=== PATIENT | female | born 1990 | race Caucasian/White ===

== ENCOUNTER 2022-02-16 10:36 | Observation (INO) ==
[2022-02-16] MEDS ORDERED: Naloxone 0.4 MG/ML INJ IVP PRN (12:47)
[2022-02-16] MEDS ORDERED: Acetaminophen 325 MG TABLET PO PRN (12:56)
[2022-02-16] MEDS ORDERED: Ondansetron 4 MG/2 ML VIAL IVP PRN ×2 (12:56→17:11)
[2022-02-16] MEDS ORDERED: *HR* OxyCODONE Immed Rel 5 MG TABLET PO PRN (12:56)
[2022-02-16] MEDS ORDERED: *HR* HYDROcodone/Acet 5/325 mg TABLET PO PRN (12:56)
[2022-02-16] MEDS ORDERED: *HR* HYDROmorphone 2 MG/ML SYRINGE IVP PRN (13:16)
[2022-02-16] MEDS: Ringers Solution, Lactated 1,000 ML IVC SCH ×2 (13:39→22:39)
[2022-02-16] MEDS ORDERED: *HR* FentaNYL (PF) 100 MCG/2 ML VIAL ONE (16:51)
[2022-02-16] MEDS ORDERED: *HR* Midazolam HCl 2 MG/2 ML VIAL ONE (16:52)
[2022-02-16] MEDS ORDERED: *HR* Propofol 200 MG/20 ML VIAL IVP ONE (16:52)
[2022-02-16] MEDS ORDERED: *HR* Succinylcholine 200 MG/10 ML VIAL IVP ONE (17:03)
[2022-02-16] MEDS ORDERED: Ondansetron 4 MG/2 ML VIAL ONE (17:03)
[2022-02-16] MEDS ORDERED: Lidocaine HCL 4 ML Topical Solution (Laryng-O-Jet Kit Sterile Pak) TP ONE (17:03)
[2022-02-16] MEDS ORDERED: *HR* FentaNYL (PF) 100 MCG/2 ML VIAL IVP PRN ×2 (17:11→17:36)
[2022-02-16] MEDS ORDERED: Prochlorperazine 10 MG/2 ML VIAL IVP ONE (23:01)
[2022-02-17 03:22] LABS: Basophils % 0.2 %; Hematocrit 32.8 % (35.3-44.9); Hemoglobin 10.4 g/dL (11.5-15.4); Immature Granulocytes % 0.4 % (0-4); Lymphocytes # 0.8 K/mcL (0.6-4.6); Mean Corpuscular HGB Conc 31.7 g/dL (31.6-35.5); Mean Corpuscular Hemoglobin 24.3 pg (28.0-33.3); Mean Corpuscular Volume 76.6 fL (83.0-100.0); Mean Platelet Volume 11.7 fL (9.4-12.4); Monocytes # 0.2 K/mcL (0.0-1.3); Monocytes % 1.8 %; Neutrophils # 8.2 K/mcL (1.6-8.9); Platelet Count 207 K/mcL (140-400); Red Blood Count 4.28 M/mcL (3.82-4.97); Red Cell Distribution Width 15.9 % (11.5-14.5); Segmented Neutrophils % 88.6 %; White Blood Count 9.2 K/mcL (4.3-11.1)
[2022-02-17 03:45] LABS: BUN/Creatinine Ratio 16 (6-26); Blood Urea Nitrogen 10 mg/dL (6-20); Calcium 8.7 mg/dL (8.6-10.3); Carbon Dioxide 24 mEq/L (23-29); Chloride 107 mEq/L (98-107); Chol/HDL Ratio 3.6 (0-4.9); Cholesterol 91 mg/dL (< 200); Glucose 94 mg/dL (70-105); HDL Cholesterol 25 mg/dL (40-59); LDL Cholesterol,Calculated 59 mg/dL (< 100); Magnesium 1.5 mg/dL (1.6-2.6); Osmolality,Calculated 287 (280-300); Potassium 4.3 mEq/L (3.5-5.1); Sodium 139 mEq/L (136-145); Triglycerides 33 mg/dL (< 150)
[2022-02-17] MEDS: Nicotine 14 MG PATCH.TD24 TD SCH (08:07)
[2022-02-17] MEDS: *HR* Enoxaparin 40 MG/0.4 ML SYRINGE SQ SCH (08:07)
[2022-02-17 10:58] LABS: Alanine Aminotransferase 68 Units/L (7-52); Albumin 3.5 g/dL (3.5-5.7); Albumin/Globulin Ratio 1.4 (1.1-2.2); Alkaline Phosphatase 117 Units/L (34-104); Aspartate Amino Transferase 60 Units/L (13-39); Bilirubin,Direct 0.8 mg/dL (0.0-0.2); Bilirubin,Indirect 0.8 mg/dL (0.0-1.0); Bilirubin,Total 1.6 mg/dL (0.3-1.0); Globulin 2.5 g/dL (2.4-3.5)
[2022-02-17 12:21] LABS: Lipase 756 Units/L (11-82)
[2022-02-17] MEDS: 0.9 % Sodium Chloride 1,000 ML IVC SCH (12:23)
[2022-02-17] MEDS ORDERED: Lidocaine -MPF 2% 5 ML VIAL ONE (14:19)
[2022-02-17] MEDS ORDERED: Ondansetron 4 MG/2 ML VIAL ONE (14:19)
[2022-02-17] MEDS ORDERED: Lidocaine HCL 4 ML Topical Solution (Laryng-O-Jet Kit Sterile Pak) TP ONE (14:19)
[2022-02-17] MEDS ORDERED: *HR* Rocuronium Bromide 50 MG/5 ML VIAL ONE (14:19)
[2022-02-17] MEDS ORDERED: *HR* Propofol 200 MG/20 ML VIAL IVP ONE (14:19)
[2022-02-17] MEDS ORDERED: *HR* FentaNYL (PF) 100 MCG/2 ML VIAL ONE ×2 (14:19→15:09)
[2022-02-17] MEDS ORDERED: cefOXitin 2,000 MG in 0.9 % Sodium Chloride 20 ML IVP ONE (14:38)
[2022-02-17] MEDS ORDERED: CefOXitin 2,000 MG VIAL ONE (14:41)
[2022-02-17] MEDS ORDERED: Ringers Solution, Lactated 1,000 ML IVC SCH (14:45)
[2022-02-17] MEDS ORDERED: Sugammadex Sodium 200 MG/2 ML VIAL IV ONE (15:14)
[2022-02-17] MEDS ORDERED: *HR* HYDROmorphone PF 0.5 MG/0.5 ML SYRINGE IVP PRN (15:39)
[2022-02-17] MEDS ORDERED: Ondansetron 4 MG/2 ML VIAL IVP PRN (15:39)
[2022-02-17] MEDS ORDERED: Albuterol 2.5 MG/3 ML NEBULIZER IH ONE (15:40)
[2022-02-18] MEDS: 0.9 % Sodium Chloride 1,000 ML IVC SCH (00:28)
[2022-02-18] MEDS: *HR* Enoxaparin 40 MG/0.4 ML SYRINGE SQ SCH (05:28)
[2022-02-18 07:00] LABS: Hematocrit 30.4 % (35.3-44.9); Hemoglobin 9.7 g/dL (11.5-15.4); Mean Corpuscular HGB Conc 31.9 g/dL (31.6-35.5); Mean Corpuscular Hemoglobin 24.9 pg (28.0-33.3); Mean Corpuscular Volume 77.9 fL (83.0-100.0); Mean Platelet Volume 12.9 fL (9.4-12.4); Platelet Count 222 K/mcL (140-400); Red Cell Distribution Width 16.1 % (11.5-14.5)
[2022-02-18 07:33] LABS: % Iron Saturation 8 % (15-50); Alanine Aminotransferase 42 Units/L (7-52); Albumin 3.2 g/dL (3.5-5.7); Albumin/Globulin Ratio 1.5 (1.1-2.2); Alkaline Phosphatase 90 Units/L (34-104); Aspartate Amino Transferase 20 Units/L (13-39); BUN/Creatinine Ratio 14 (6-26); Bilirubin,Total 0.4 mg/dL (0.3-1.0); Blood Urea Nitrogen 10 mg/dL (6-20); Carbon Dioxide 28 mEq/L (23-29); Chloride 108 mEq/L (98-107); Globulin 2.2 g/dL (2.4-3.5); Glucose 97 mg/dL (70-105); Iron 27 mcg/dL (50-170); Osmolality,Calculated 287 (280-300); Potassium 3.9 mEq/L (3.5-5.1); Sodium 139 mEq/L (136-145); Total Protein 5.4 g/dL (6.4-8.9); Transferrin 242 mg/dL (203-362)
[2022-02-18 07:36] LABS: Ferritin 17 ng/mL (10-120)
[2022-02-18] MEDS: Nicotine 14 MG PATCH.TD24 TD SCH (08:53)
[2022-02-18] MEDS ORDERED: Simethicone 80 MG TAB.CHEW PO PRN (11:49)
[2022-02-18 12:08] VITALS: BP 100/65; PULSE 76; TEMP 97.9; O2SAT 95
== END 2022-02-18 13:57 | disposition home or self-care (01) ==
LOC: 3ANU → SUATTDRO 12:04
PROVIDERS: ADMIT Pharmacist; ATTEND Internal Medicine